=== PATIENT | female | born 2000 | race Caucasian/White ===

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

== ENCOUNTER 2021-07-30 01:25 | Emergency (ER) | payer OTHER ==
[~2021-07-30] VITALS: Ht 175.3 cm; Wt 135.5 kg
[~2021-07-30 01:25] MED LIST changes: +CETACAINE SPRAY20 GM TOP; +ESCITALOPRAM OX10 MG PO; +ESCITALOPRAM OXA5 MG PO; +MINIPRESS1 MG PO; +MONO-LINYAH1 EACH PO; +TRAZODONE HCL50 MG PO
[2021-07-30] MEDS ORDERED: PRENATAL GUMMI1 EACH PO (01:57)
== END 2021-07-30 04:16 | disposition home or self-care (01) ==
LOC: ED 01:25
DX: O20.9 Hemorrhage in early pregnancy, unspecified (principal); O30.001 Twin pregnancy, unspecified number of placenta and unspecified number of amniotic sacs, first trimester; O24.111 Pre-existing type 2 diabetes mellitus, in pregnancy, first trimester; Z3A.01 Less than 8 weeks gestation of pregnancy; E11.9 Type 2 diabetes mellitus without complications; Z86.16 Personal history of COVID-19; Z79.84 Long term (current) use of oral hypoglycemic drugs; Z88.2 Allergy status to sulfonamides; Z88.8 Allergy status to other drugs, medicaments and biological substances
CPT/HCPCS: 76801; 76817; 80048; 84702; 85025; 86900; 99284-25

== ENCOUNTER 2021-10-03 11:38 | Emergency (ER) | payer OTHER ==
[~2021-10-03] VITALS: Ht 175.3 cm; Wt 146.1 kg
[~2021-10-03 11:38] MED LIST changes: +PRENATAL GUMMI1 EACH PO
[2021-10-03] MEDS ORDERED: NOVOLIN N100 UNIT/1 SUB-Q (12:24)
[2021-10-03] MEDS ORDERED: ADMELOG100 UNIT/1 (12:24)
[2021-10-03] MEDS ORDERED: BAYER CHEWABLE81 MG PO (12:25)
[2021-10-03] MEDS ORDERED: ONDANSETRON ODT8 MG PO (15:33)
[2021-10-03] MEDS ORDERED: ACYCLOVIR400 MG PO (15:33)
== END 2021-10-03 15:44 | disposition home or self-care (01) ==
LOC: ED 11:38
DX: O99.612 Diseases of the digestive system complicating pregnancy, second trimester (principal); K52.9 Noninfective gastroenteritis and colitis, unspecified; O98.512 Other viral diseases complicating pregnancy, second trimester; A60.00 Herpesviral infection of urogenital system, unspecified; O99.512 Diseases of the respiratory system complicating pregnancy, second trimester; J45.909 Unspecified asthma, uncomplicated; O24.312 Unspecified pre-existing diabetes mellitus in pregnancy, second trimester; Z86.16 Personal history of COVID-19; Z88.8 Allergy status to other drugs, medicaments and biological substances; Z79.4 Long term (current) use of insulin; Z79.82 Long term (current) use of aspirin; Z3A.14 14 weeks gestation of pregnancy
CPT/HCPCS: 51701; 80053; 81001; 85025; 87210; 99284-25; J2405; J7030